=== PATIENT | female | born 1980 | race Caucasian/White ===

== ENCOUNTER → 2017-12-04 | Day surgery (SDC) | payer OTHER ==
[~2017-12-04] MED LIST: BUPIVACAINE HCL 0.5% INJ 30 ML VIAL INJ ONE; CEFAZOLIN SOD 1 GM VIAL ONE; CITALOPRAM HBR20 MG PO; CLONAZEPAM0.5 MG PO; DEXAMETHASONE SOD PHOS INJ 4 MG/ML VIAL ONE; FENTANYL CITRATE/PF 100MCG/2 ML INJ ONE; KETOROLAC TROMETHAMINE 30 MG/ML VIAL ONE; LIDOCAINE HCL 2% LOCAL INJ 5 ML SDV VIAL INJ ONE; MIDAZOLAM HCL 2 MG/2 ML VIAL ONE; NEOSTIGMINE 1 MG/ML 10ML VIAL ONE; NP THYROID60 MG PO; ONDANSETRON HCL INJ 2 MG/ML VIAL ONE; PROPOFOL IV EMULSION 10 MG/ML 20 ML VIAL ONE; SEVOFLURANE INHAL SOLN 250 ML PEN BTL ONE
[2017-12-04] MEDS: LORAZEPAM INJ 2 MG/ML VIAL IV NR ×3 (09:19→09:50)
--- NOTE | 2017-12-14 13:47 | Operative Report ---
DATE OF PROCEDURE: December 10, 2017 PREOPERATIVE DIAGNOSIS: Right hallux valgus. POSTOPERATIVE DIAGNOSIS: Right hallux valgus. PLANNED PROCEDURE: Right [place] bunionectomy. HEAD OF MATHEMATICS: Dr. Joce DPM ANESTHESIA: General with a postoperative block consisting of 10 mL of 0.5% Marcaine plain mixed with 1 mL of dexamethasone phosphate. HEMOSTASIS: Pneumatic thigh tourniquet set at 350 mmHg for a total time of approximately 1 hour and 15 minutes. MATERIALS: One 4.0 cannulated x 34 mm [employer] cortical bone screw, two 24 IO nonlocking [employer] screws, small [place] plate [employer], two 18 nonlocking screws, two 18 locking screws, 2-0 Vicryl, 3-0 Vicryl, 4-0 Prolene. ESTIMATED BLOOD LOSS: Less than 10 mL. PATHOLOGY: None. DETAILS OF PROCEDURE: The patient was seen in the preoperative waiting room where the correct procedure and site were identified. The patient was brought to the operating room and placed onto the operating table in the supine position. General anesthesia was initiated at this time. A well-padded pneumatic tourniquet was placed about the patient's right thigh. The right foot, ankle and leg were then scrubbed, prepped and draped in the usual aseptic manner. The leg was exsanguinated with an Esmarch bandage. The pneumatic thigh tourniquet was inflated to 350 mmHg for a total time of approximately 1 hour and 15 minutes. Attention was directed to the distal medial aspect the patient's right foot where a large bunion deformity was noted. Utilizing a #15 blade, a 7-cm curvilinear incision was made directly over the 1st metatarsocuneiform joint extending to the 1st metatarsophalangeal joint. The incision was carried through subcutaneous tissue them from deeper underlying structures. All vital neurovascular structures were identified and retracted medially and laterally, and all bleeders were cauterized or ligated as deemed necessary. Attention was directed to the 1st metatarsocuneiform joint where, utilizing an osteotome, the joint was identified and the plantar ligaments were cut to allow for proper rotation of the metatarsal. Utilizing a sagittal saw, an osteotomy was performed at the distal aspect of the 1st cuneiform with the apex medial and the wedge lateral. Then, utilizing a sagittal saw, the articular cartilage of the 1st metatarsal was resected. Both fragments were resected and passed off to the back table utilizing a curette. Any remaining cartilage was denuded. Next, utilizing a 0.62 K-wire, subchondral drilling was performed to allow for adequate fusion. Next, a 0.62 K-wire was drilled into the 1st metatarsal to allow for rotation. At this point, the incision was carried through the 1st metatarsophalangeal joint where a full lateral release was performed consisting of the deep transverse metatarsal ligament, lateral collateral ligament as well as the fibular sesamoid ligament. The hallux was then put through a range of motion and found to be functioning in a more proper anatomic alignment. Next, the inverted-L capsulotomy was performed at the 1st metatarsophalangeal joint to ensure that the joint was freed. Next, utilizing techniques of manipulation and distraction and plantar flexion, the 1st intermetatarsal angle was reduced and temporarily pinned. The rotation of the intermetatarsal angle was noted on the intraoperative x-ray. Utilizing techniques of AO fixation, one 4.0 cannulated screw was placed through the arthrodesis site, and then the fixation site was noted to be stable. Then, for additional fixation per supervisor bonding's protocol, a medial locking plate was placed with 4 screws, 2 locking and 2 nonlocking, to allow for proper fixation. These were all from [place]. The wound was then flushed with copious amounts of sterile saline. Capsule and deep tissue were reapproximated with 2-0 Vicryl and subcutaneous tissue with 3-0 Vicryl. The skin was closed utilizing a running subcuticular suture with 4-0 Monocryl. The incision site was then dressed with Mastisol, Steri-Strips, 4 x 4's, Kerlix, Neo wrap and Webril followed by 4 x 30 posterior splint, 4-inch Neo wrap, and 6-inch Neo wrap. The patient was then transferred to the postoperative recovery unit with vital signs stable and vascular status intact. The patient was monitored there for a short period of time before being sent home with the following written and oral instructions: 1. Keep the dressing clean, dry and intact. 2. The patient is to remain nonweightbearing in a posterior splint and to avoid any ambulation until being seen in the office. 3. Patient was given the office number and instructed to contact us if any problems should arise. Job#: [id number]
== END | disposition home or self-care (01) ==
LOC: OR 05:13
PROVIDERS: ATTEND Podiatrist Foot & Ankle Surgery
DX: M20.11 Hallux valgus (acquired), right foot (principal); E03.9 Hypothyroidism, unspecified; F41.9 Anxiety disorder, unspecified; F32.9 Major depressive disorder, single episode, unspecified
CPT/HCPCS: 28297; 81025; C1713 ×4; J0690; J1100; J1885; J2001; J2060; J2250; J2405; J2710